=== PATIENT | female | born 1950 | race Caucasian/White ===

== ENCOUNTER → 2017-10-23 | Outpatient (CLI) | payer MEDICARE, OTHER ==
--- NOTE | 2017-10-24 08:31 | RADIOLOGY IMAGING REPORT ---
FACILITY: [facility] PATIENT NAME: BRYN MORENO : [id number] MR: [id number]: [id number] EXAM DATE: ORDERING PHYSICIAN: BERNIE ALCANTARA TECHNOLOGIST: Neida Morrell PROCEDURE:BILATERAL DIGITAL SCREENING MAMMOGRAM WITH CAD ASSISTED INTERPRETATION AND 3D BREAST TOMOSYNTHESIS. COMPARISON:Prior mammograms dated 09/25/16, 09/03/16, 08/04/15, 07/27/14, 03/26/13 and 01/29/12. INDICATIONS:SCREENING FINDINGS: A small to moderate amount of fibroglandular tissue is seen throughout the breasts. The parenchymal pattern has remained stable when allowing for difference in mammographic technique and patient positioning. There is no evidence of malignant appearing mass, malignant appearing calcification or other secondary sign of malignancy in either breast. DIAGNOSTIC CATEGORY 1--NEGATIVE. RECOMMENDATIONS: ROUTINE MAMMOGRAM AND CLINICAL EVALUATION. IMPRESSION: Bi-RADS 1: No significant abnormality is seen. Images were reviewed with R2CAD and 3D breast tomosynthesis. Dictated by: Octavia Gan M.D. on 10/23/2017 at 15:48 Transcribed by: CHARITO on 10/23/2017 at 19:40 Approved by: Octavia Gan M.D. on 10/24/2017 at 8:30 [facility]
== END ==
LOC: MAMO 01:13
PROVIDERS: ATTEND Nurse Practitioner Psychiatric/Mental Health
DX: Z12.31 Encounter for screening mammogram for malignant neoplasm of breast (principal)
CPT/HCPCS: 77063; 77067